=== PATIENT | female | born 1965 | race Caucasian/White ===

== ENCOUNTER 2020-08-25 10:18 | Observation (INO) | payer OTHER, SELFPAY ==
[2020-08-25] VITALS (12 sets, daily range): BP systolic 111–159; BP diastolic 62–89; PULSE 56–74; RESP 12–18; TEMP 36.1–36.8; O2SAT 95–99; BMI 33.5; BMI 33.0
--- NOTE | 2020-08-25 10:24 | RAD_ITS ---
STUDY: X-RAY CHEST REASON FOR EXAM: Female, 55 years old. Left arm n/t, blurred vision, and headache -- sudden onset this morning TECHNIQUE: Single AP portable view of the chest. COMPARISON: None. FINDINGS: The lungs are clear and expanded. There is no demonstrated pleural abnormality. Normal size heart. Normal mediastinum and geetha. Normal visualized pulmonary arteries. Normal visualized aortic arch and descending thoracic aorta. There are diffuse degenerative changes of the visualized thoracic spine. There is a suggestion of prior left lower rib fracture allowing for summation of shadows. There is no demonstrated abnormality of the visualized soft tissue structures of the upper abdomen. RAD/Chest 1 View IMPRESSION: No demonstrated acute cardiopulmonary process. Electronically Signed: Nusrat Musa MD at 12:04 EST Tel , Service support ,
--- NOTE | 2020-08-25 10:24 | CT_ITS ---
STUDY: CT HEAD STROKE PROTOCOL W/O CONTRAST INJECTION REASON FOR EXAM: Female, 55 years old. CVA RADIATION DOSAGE (If Supplied By Facility): CTDIvol = ( ) mGy, DLP = ( ) mGycm TECHNIQUE: Transaxial CT imaging of the brain was performed without administration of intravenous contrast material. Individualized dose optimization techniques were used for this CT. COMPARISON: No relevant priors. FINDINGS: Normal soft tissue structures. Normal calvarium. Normal size ventricles and extra-axial spaces for the patient''s age. Normal white matter tracts of the cerebral hemispheres. Normal basal ganglia and thalami. Normal brainstem. There is mild cerebellar atrophy. There is a small 2.7 mm focus of low-attenuation within the low left basal ganglia which may represent a small prior lacunar infarct versus a small CSF space Virchow-Clarence space. There is no intracranial hemorrhage. There are no findings of an acute ischemic infarction. Normal visualized paranasal sinuses. ASPECT score: 04/20 CT/STROKE Brain/Head without Cont IMPRESSION: Minimal atrophy no evidence of acute hemorrhage infarct or edema. Possible prior left-sided basal ganglia infarct versus small Virchow-Clarence space. N.B. : The above information has been verbally conveyed by Nusrat Musa MD to Emmanuel Glass MD, on 08/25/2020 10:44:24 (ET). Electronically Signed: Nusrat Musa MD at 10:45 EST Tel , Service support ,
--- NOTE | 2020-08-25 10:24 | EKG12_ITS ---
Test Reason : STROKE Blood Pressure : / mmHG Vent. Rate : 066 BPM Atrial Rate : 066 BPM P-R Int : 182 ms QRS Dur : 090 ms QT Int : 414 ms P-R-T Axes : -06 -04 003 degrees QTc Int : 434 ms Normal sinus rhythm Low Voltage QRS Confirmed by CORRINE YOO, COLT ([id number]), film editor supervisor TANJA EGAN ([id number]) on 08/29/2020 1:28:00 PM Referred By: Confirmed By:COLT CASTLE MD
--- NOTE | 2020-08-25 10:26 | ED.DCSUM_ITS ---
History of Present Illness Chief Complaint: Neuro S/Sx Informant: Patient Onset: Today, Hours - 0920 Context: Sudden Onset Timing: Continuous Quality and Location: Left Face Parasthesia, Left Arm Parasthesia, Left Leg Para sthesia, - - Patient reports she had a TIA 1 week ago seen at [facility] and symptoms were on the right side. Onset: 09 Current Severity: Mild Maximum Severity: Mild Worsened by: Nothing Relieved by: Nothing Associated Symptoms: Headache. Negative for: Nausea, Vomiting, Chest Pain Narrative: Patient is a 55-year-old woman who quit smoking 1 week ago and history of hypercholesterolemia who was diagnosed with a TIA 1 week ago. She presents because of binocular blurred vision, numbness on the left side. She has persistent numbness left upper extremity. The numbness in the left lower extremity has resolved. She states her smile was crooked when she was seen at [facility] and affected the right side. She does report headache. She denies double vision or loss of vision. She denies trouble with speech or swallowing. She denies cardiac respiratory symptoms. She denies nausea or vomiting. There is no history of trauma. Onset of today's symptom 0920. Reports improvement since onset. Prior similar symptoms: Yes Recent Illness/Hospitalization: Yes - Past Medical History (1) History of hypercholesterolemia Status: Acute Past Medical History - Allergies and Home Meds Allergies/Adverse Reactions: Allergies No Known Allergies Allergy (Verified 08/25/20 10:24) Primary Care Physician: Braxton Toussaint MD [Primary Care Provider] - Prior records reviewed: No - Obtaining records from outside facility Lives: Spouse/ Significant Other Smoking Status: Former smoker Alcohol: None Drugs: None Review of Systems General: Denies: Chills, Fever, Malaise Eyes: Reports: Blurred Vision - bilaterally. Denies: Visual changes - bilaterally, Diplopia ENT: Denies: Rhinorrhea, Sore throat Cardiovascular: Denies: Chest pain, Palpitations Respiratory: Denies: Dyspnea, Cough, Dyspnea on exertion Gastrointestinal: Denies: Abdominal pain, Nausea, Vomiting, Diarrhea, Melena, Hematochezia Genitourinary: Denies: Dysuria, Hematuria, Frequency Musculoskeletal: Denies: Myalgias, Arthralgias, Neck pain, Back pain, Swelling, Extremity Pain, -, - Skin: Denies: Rash, Wounds Neurological: Reports: Headache, Parasthesia, Numbness Psych: Reports: Anxiety Hematologic: Denies: Easy bruising, Easy bleeding Allergy: Denies: Uticaria STROKE Inital Vital Signs reviewed: Yes - NIHSS Initial 1a Level of Consciousness: 0 1b LOC Questions (Score 2 if aphasic/stupor): 0 1c LOC Commands (Only score 1st attempt): 0 2 Best Gaze (If aphasic, use reflexive mvmts.): 0 3 Visual: 0 4 Facial Palsy: 1 5 Motor Arm Right (UN = amputation/fusion): 0 5 Motor Arm Left: 0 6 Motor Leg Right: 0 6 Motor Leg Left: 0 7 Limb ataxia (Only + if out of proportion): 0 8 Sensory (Aphasia/stupor=0 or 1, coma=2): 1 9 Best Language: 0 10 Dysarthria (mute, coma=2, intubated=UN): 0 11 Extinction and Inattention (only scored if +): 0 Total Score: 2 General: Well nourished, Well developed Head: Normocephalic, Atraumatic Eyes: Perrl, EOMI ENT: Moist mucous membranes, No rhinorrhea Neck: Supple, Nontender Cardiovascular: Regular rate, Regular rhythm, No murmurs, Normal S1, Normal S2 Respiratory: No distress, CTA bilaterally, Chest nontender Abdomen: Soft, Nontender, Nondistended, Normal bowel sounds Rectal: Deferred Back: Nontender, Normal Inspection Extremities: Nontender, No edema Skin: Normal color, No rash Neurological: Alert, Oriented x3, Normal Strength, Normal Sensation. Negative for: Cranial nerves II-XII grossly intact - She has asymmetry right side of her face. Psychological: Normal affect, - - Patient is anxious. Diagnostic/Tx/Re-eval - EKG Initial EKG Interpretation: Sinus Rhythm - Normal sinus rhythm with ventricular to 66. [place] interval is 182 ms. QRS duration 90 ms. [place] is normal. QT duration is normal. The EKG is normal. EKG was performed at 1037. - Medical Decision Making Stroke Team Activated: Yes Reviewed Inclusion/Exclusion criteria: Yes Was Patient considered for Endovascular Intervention?: No IV Alteplase (t-PA) Administered: No No contraindications for IV Alteplase (t-PA) administration.: No - Of contraindication of stroke last week and abnormality noted on CT Alteplase (t-PA) risks, benefits, alternative discussed: Yes Patient 55-year-old woman who was seen at outside facility and diagnosed with stroke 1 week ago. She states she quit smoking. She presents with left-sided symptoms. 1 week ago she had right-sided symptoms. Patient has relative contraindication since she had a stroke 1 week ago with regards to TPA. Since her score is a 2 and 1 point was assessed because of residual asymmetry with smiling patient has minor symptoms at this time. CTA was not performed. With patient complaint of headache concerned she may have hemorrhagic conversion. Since there is involvement on the opposite side need to rule out embolic phenomenon. Will obtain MRI, CT, echo and discharge summary from outside facility. I received call from radiologist at [address] reveals a 1 to 2 mm area of abnormality left basal ganglion which may represent her stroke from last week. The neurologist from [facility] is presently performing his neurologic exam. With patient having right-sided symptoms last week and left-sided symptoms this week need to evaluate for embolic phenomenon and rule out PFO if bubble test was not performed. The neurologist at [facility] requested a CTA of the head and neck. This was ordered. Records from outside facility were obtained. Patient had a CT, CTA and MRI. No discrete abnormalities noted however reading the text of the discharge summary indicates there was an abnormality noted left torso putamen. Patient had an A1c of 6.2. She was discharged on Plavix. There is no documentation of an e chocardiogram however under discharge diagnosis #1 acute clinical CVA, patient will be discharged with dual antiplatelet therapy for 3 weeks followed by aspirin monotherapy, high-dose atorvastatin at 80 mg daily and CardioNet monitor on discharge assuming echocardiogram shows no thrombus. Hospital course indicated that her symptoms were on the left side and not right side as patient stated. Critical care time (excluding procedures): 30-74 minutes - This included history, physical exam, discussion with radiologist, discussion with neurologist at [facility], documentation, arranging admission/transfer. Attaining records from outside facility. Reviewing records from outside facility. ED Disposition - Plan for ED Patient: Disposition: Acute Care Hospital [facility] Diagnosis: CVA (cerebral vascular accident), History of hypercholesterolemia Referrals: Braxton Toussaint MD [Primary Care Provider] -
[2020-08-25 10:30] LABS: Bedside Glucose 126 mg/dL (70-110)
[2020-08-25 10:48] LABS: Absolute Lymphocyte Count 1.58 X10^3/uL (0.83-4.51); Absolute Neutrophil Count 2.7 X10^3/uL (2.0-7.7); Basophil# 0.02 X10^3/uL; Basophil% 0.4 % (0-1); Eosinophil# 0.06 X10^3/uL; Eosinophils% 1.2 % (0-5); Hematocrit 46.1 % (37-47); Hemoglobin 15.1 g/dL (12.0-15.0); Lymphocyte # 1.58 X10^3/ul (4.0); Lymphocyte % 32.3 % (19-41); Mean Corp Hgb Conc 32.8 g/dL (32-36); Mean Corpuscular Hgb 30.2 pg (27.0-32.0); Mean Corpuscular Volume 92.2 fL (81-99); Mean Platelet Vol. 11.7 fl (6.2-12.0); Monocyte# 0.52 X10^3/uL; Monocyte% 10.6 % (0-10); NRBC Flagged by Analyzer 0 % (0-5); Neutrophil % 55.3 % (47-70); Platelet Count 226 K/mm3 (150-450); RBC Distribution Width CV 12.7 % (11.6-14.6); RBC Distribution Width SD 42.7 fl (35.1-43.9); White Blood Count 4.9 K/mm3 (4.4-11.0)
--- NOTE | 2020-08-25 11:00 | CT_ITS ---
We are attempting to reach an attending provider to discuss findings. An addendum with communication details will be sent when the communication is complete. STUDY: CTA HEAD AND NECK WITH CONTRAST REASON FOR EXAM: Female, 55 years old. CVA, LT SIDED N/T, HLD, TIA 1 WK AGO, [place] RADIATION DOSAGE (If Supplied By Facility): CTDIvol = ( 17.85 ) mGy, DLP = ( 657.88 ) mGycm TECHNIQUE: CT angiography was performed with a multi-detector CT scanner. Data acquisition was obtained from the skull base through the vertex following intravenous administration of IV 100mL Isovue-370. MIP images were reconstructed from the axial data set. Post-processing of the angiographic images was performed, with multiplanar reformation and 3D reconstruction. Individualized dose optimization techniques were used for this CT. COMPARISON: No relevant priors. FINDINGS: Normal bilateral petrous carotid arteries. Normal right cavernous carotid artery with a normal supraclinoid bifurcation. Normal left cavernous carotid artery with a normal supraclinoid bifurcation. Normal right A1 segments of the anterior cerebral artery. Normal left A1 segments of the anterior cerebral artery. Normal intact anterior communicating artery (ACOM). Normal bilateral A2 segments of the anterior cerebral arteries. Normal right M1 and M2 segments of the middle cerebral arteries, with a normal M1 bifurcation. Normal left M1 and M2 segments of the middle cerebral arteries, with a normal M1 bifurcation. Small caliber posterior communicating artery (PCOM). Small caliber left posterior communicating artery (PCOM). Normal bilateral vertebral arteries. Normal basilar artery with a normal basilar bifurcation. The visualized bilateral superior cerebellar (SCA) arteries are normal. There is a slightly beaded appearance of the right proximal posterior cerebral artery suggesting probable 3.2 mm small segment of fibromuscular dysplasia. The vessel is otherwise patent without visualized thrombus. The left side posterior cerebral artery appears normal without visualized stenosis. There is no demonstrated aneurysm of the [place]. There is no demonstrated abnormality of the visualized brain. AORTIC ARCH: Normal visualized aortic arch. Normal origins of the brachiocephalic, left common carotid, and left subclavian arteries. RIGHT CAROTID ARTERIES: There is atherosclerotic tortuous elongation of the right common carotid artery. There is mild atherosclerotic plaque formation with minimal narrowing of the right carotid bulb. Normal origin of the right internal carotid (ICA) artery without a hemodynamically significant stenosis. Normal visualized cervical portion of the right internal carotid artery. Normal origin of the right external carotid artery (ECA). LEFT CAROTID ARTERIES: Normal left common carotid artery (CCA). Normal left common carotid bulb. Normal origin of the left internal carotid (ICA) artery without a hemodynamically significant stenosis. There is atherosclerotic tortuous elongation of the cervical portion of the left internal carotid artery. Normal origin of the left external carotid artery (ECA). VERTEBRAL ARTERIES: Normal bilateral vertebral arteries. There is incidental visualization of bilateral low attenuating nodules within the thyroid, 5.3 mm on the right and 4.7 mm on the left. There is visualized emphysematous change in the lung apices. There is multilevel degenerative change within the visualized cervical spine. The bone windows are limited at C5-C6 there is a disc osteophyte with mild to moderate neural foramina narrowing mild central stenosis. There is mild facet arthropathy. At C6-C7 there is disc space narrowing and endplate sclerosis mild neural foramina narrowing. There is visualized left-sided maxillary mucosal retention cyst ethmoid sinus mucosal thickening. CT/CTA Head AND Neck W/ Contrast IMPRESSION: Minimal plaque formation of the right internal carotid artery without evidence of stenosis. Probable small focus of fibromuscular dysplasia within the proximal right posterior cerebral artery without evidence of significant stenosis. Recommend consideration for follow-up MRI/MRA if clinically appropriate to evaluate for areas of acuity. Degenerative changes of the cervical spine especially C5-C6 C6-C7. Incidental finding of bilateral thyroid nodules. Recommend consideration for follow-up thyroid ultrasound laboratory values when clinically appropriate. Electronically Signed: Nusrat Musa MD at 11:52 EST Tel , Service support ,
[2020-08-25 11:05] LABS: International Normalized Ratio 0.9; Prothrombin Time (Protime)PT. 11.9 SECONDS (11.7-14.9)
[2020-08-25 11:06] LABS: Anion Gap 8 (5-15); BUN 17 mg/dL (7-18); BUN/Creat Ratio 21.9 RATIO (10-20); Calcium,Total 8.8 mg/dL (8.5-10.1); Chloride 104 mmol/L (98-107); Creatinine, Serum 0.78 mg/dL (0.55-1.02); EST Glomerular Filtration Rate 81 mL/min (>60); Est Glom Filt Rate - Afr Amer 98 mL/min (>60); Estimated Creatinine Clearance 68.72 ml/min; Glucose 105 mg/dL (74-106); Sodium Level 139 mmol/L (136-145)
[2020-08-25 11:07] LABS: Partial Thromboplast Time 27.5 Seconds (24.1-36.2)
--- NOTE | 2020-08-25 13:20 | PCM.HP.STD ---
Problem List (1) History of hypercholesterolemia Status: Acute (2) CVA (cerebral vascular accident) Status: Acute History of Present Illness Date of Admission: 08/25/20 Chief Complaint: Left-sided numbness, tingling, blurred vision. The patient is a 55 year old F who presents emergency room due to left-sided numbness, tingling and blurred vision. Patient states she was diagnosed with TIA 1 week ago at [facility] and had similar symptoms. Patient states her symptoms resolved at that time however recurred this morning. She denies unilateral weakness. She reports mild sensory deficit on the left side however visual disturbances have subsided. She states she quit smoking 1 week ago after her TIA diagnosis. She denies other medical history. She has been taking her dual antiplatelet which was recently prescribed. Denies other associated symptoms or complaints. Her past medical history includes recent TIA, prediabetes, tobacco dependence, hyperlipidemia. Past Medical History Allergies No Known Allergies Allergy (Verified 08/25/20 10:24) Home Medications: Ambulatory Orders Medication Instructions Recorded Aspirin [Aspirin, Baby] 81 mg PO DAILY@0800 08/25/20 Atorvastatin Calcium [Lipitor] 80 mg PO QHS 08/25/20 Clopidogrel Bisulfate [Plavix] 75 mg PO DAILY 08/25/20 Hydroxyzine HCl 25 mg PO Q8H PRN PRN 08/25/20 Nicotine [Nicoderm Cq (PBKC)] 14 mg TRANSDERM. DAILY 08/25/20 Pantoprazole Sodium [Protonix] 40 mg PO DAILY 08/25/20 Surgical History: - - Right shoulder surgery, tonsillectomy, hernia repair. 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 Lives: Spouse/ Significant Other Smoking Status: Former smoker Alcohol: None Drugs: None - *Family History Maternal History Items: - - Denies known maternal medical history including cardiac history Paternal History Items: Diabetes, Heart Disease Review of Systems Constitutional: Denies: Chills, Fever, Weight Change HEENT: Denies: Head Aches, Sinus Congestion, Sinus Drainage Cardiovascular: Denies: Chest Pain, Palpitations Respiratory: Denies: Cough, Shortness of breath at rest, Sputum production Gastrointestinal: Denies: Abdominal Pain, Nausea, Vomiting Genitourinary: Denies: Dysuria Musculoskeletal: Denies: Joint Pain, Joint Tenderness Skin: Denies: Rash, Wounds Neurological: Reports: Blurred vision, - - Left upper extremity and left lower extremity numbness, tingling. Psychiatric: Denies: Anxiety, Depression, Homicidal Ideations, Suicidal Ideations Hematologic/ Lymphatic: Denies: Easy Bruising, Easy Bleeding VTE Information - Inpt Only VTE Present on Admission: No VTE Mechan Device Prophylaxis: None VTE Pharm Prophylaxis ordered?: Yes Patient Problems: Active and Suspected Problems History of hypercholesterolemia (Acute) CVA (cerebral vascular accident) (Acute) - Physical Exam Vitals/I&O's: Vital Signs Temp Pulse Resp BP Pulse Ox 97.0 F L 59 L 18 118/79 95 08/25/20 12:10 08/25/20 12:10 08/25/20 12:10 08/25/20 12:10 08/25/20 12:54 Oxygen Delivery Method Room Air Weight: 195 lb 12.328 oz Body Mass Index (BMI) 33.5 Finger Stick Blood Glucose 126 General: Alert, Oriented x3, Cooperative HEENT: Atraumatic, PERRLA, EOMI, Normocephalic Neck: Supple, No JVD, Negative Carotid Bruits Lungs: Clear to auscultation, Normal air movement Cardiovascular: Regular rate, No murmurs Abdomen: Bowel Sounds Present, Soft, Non Tender, Non-Distended Extremities: No clubbing, No cyanosis, No edema, Capillary Refill Less than 3 Seconds Skin: No rashes, No breakdown Musculoskeletal: No Tenderness to Palpation of Joints or Extremities Neurological: Cranial nerves II-XII grossly intact, Neuro grossly intact Psych/Mental Status: Normal Affect, Appropriate Laboratory Results 08/25/20 10:20: WBC 4.9, RBC 5.00, Hgb 15.1 H, Hct 46.1, MCV 92.2, MCH 30.2, MCHC 32.8, RDW Std Deviation 42.7, RDW Coeff of Zarina 12.7, Plt Count 226, MPV 11.7, Immature Gran % (Auto) 0.200, Neut % (Auto) 55.3, Lymph % (Auto) 32.3, [place] % (Auto) 10.6 H, Eos % (Auto) 1.2, Baso % (Auto) 0.4, Absolute Neuts (auto) 2.7, Absolute Lymphs (auto) 1.58, Nucleated RBC % 0 08/25/20 10:20: PT 11.9, INR 0.9, APTT 27.5 08/25/20 10:20: Sodium 139, Potassium 4.0, Chloride 104, Carbon Dioxide 27.0, Anion Gap 8, BUN 17, Creatinine 0.78, Estim Creat Clear Calc 68.72, Est GFR (MDRD) Af Amer 98, Est GFR (MDRD) Non-Af 81, BUN/Creatinine Ratio 21.9 H, Glucose 105, Calcium 8.8, Troponin I < 0.015 08/25/20 10:26: POC Glucose 126 H Current Medications Labetalol HCl (Labetalol (Prefilled) 20 Mg/4 Ml) 20 mg IV X1 PRN PRN Reason: BLOOD PRESSURE Assessment/Plan All Active Problems History of hypercholesterolemia (Acute) CVA (cerebral vascular accident) (Acute) 1. TIA- Patient was recently admitted to [facility] 08/16/2020 through 08/19/2020 for acute clinical CVA. CTA of head at that time showed focal hypoattenuation of the left dorsal putamen. CT of head and neck were unremarkable. MRI of brain showed no definitive stroke. Neurology consulted at [facility] who felt patient clinically had a stroke although MRI was negative and recommended dual antiplatelet therapy for 3 weeks followed by aspirin only as well as high-dose statin. She is scheduled for outpatient 30-day event monitor which has not yet arrived to her. Brain CT this admission shows possible prior left-sided basal ganglia infarct. CTA of head and neck demonstrates probable small focus of fibromuscular dysplasia within the proximal right posterior cerebral artery without evidence of significant stenosis. MRI of brain ordered. Will not repeat echo as she recently had this completed. Echocardiogram 08/19/2020 at [facility] demonstrated an EF of 50 to 55%, negative for shunt. Continue aspirin, Plavix, statin. PT/OT/ST. 2. Prediabetes-recent hemoglobin A1c at [facility] 6.2%. 3. Tobacco dependence-recent cessation. Encouraged continued cessation. Nicotine replacement patch. 4. Hyperlipidemia-continue statin. DVT prophylaxis-Lovenox subcu This patient was seen by MARCELA Givens under the supervision of Dr. Payton.
--- NOTE | 2020-08-25 13:47 | PCS.PANDOC ---
PANDEMIC DOCUMENTATION INITIATED: Date: 08/25/2020 Time: 7710
[2020-08-25] MEDS: Acetaminophen 325 MG Tablet 650 MG PO (20:50)
[2020-08-25] MEDS: Atorvastatin Calcium 80 MG Tablet PO (20:50)
[2020-08-26 00:42] VITALS: BP 115/75; PULSE 62; RESP 16; TEMP 36.7; O2SAT 98
[2020-08-26 02:53] VITALS: PULSE 57
[2020-08-26 04:40] VITALS: BP 118/65; PULSE 60; RESP 16; TEMP 36.5; O2SAT 98
[2020-08-26 07:00] VITALS: PULSE 60
--- NOTE | 2020-08-26 08:30 | MRI_ITS ---
STUDY: MRI BRAIN WITHOUT CONTRAST REASON FOR EXAM: Female, 55 years old. left parasthesia, blurred vision,leung -- tia 1 week ago, now same symptoms TECHNIQUE: Standardized multiplanar fat and water weighted pulse sequences were obtained. COMPARISON: 08/25/2020 CT of the head FINDINGS: Normal size of the ventricles and extra-axial spaces for the patient''s age. Normal white matter tracts of the supratentorial brain. Left basal ganglia small Virchow-Clarence space. Normal thalami. There is no extra-axial fluid accumulation. Normal flow voids within the major intracranial circulation suggesting patency by spin echo criteria. Normal sella turcica, pituitary gland, infundibular stalk, optic chiasm and hypothalamus. Normal tectal plate and pineal gland. Normal midbrain, xiomara and medulla. Normal cerebellum. MRI/Brain without Contrast IMPRESSION: Unremarkable unenhanced MRI of the brain. Electronically Signed: Carlos Lei MD at 10:36 EST Tel , Service support ,
[2020-08-26 08:38] VITALS: BP 133/83; PULSE 71; RESP 16; TEMP 36.6; O2SAT 98
[2020-08-26] MEDS: Clopidogrel Bisulfate 75 MG Tablet PO (08:39)
[2020-08-26] MEDS: Aspirin 81 MG TAB.CHEW PO (08:39)
--- NOTE | 2020-08-26 11:30 | CASEMGMT ---
SW did not complete a PHQ 9 with patient as per physician she did not have a Stroke or TIA. Sudha SCRUGGS MSW
--- NOTE | 2020-08-26 11:46 | DCINST_ITS ---
- Discharge Diagnoses Current Active Problems: Current Active and Chronic Problems History of hypercholesterolemia (Acute) You will use the following diet at home:: Calorie/Carbohydrate Controlled (specify 1200, 1400, etc) Discharge Activity: Return to Normal Activity Call your doctor if you observe: Shortness of breath, Dizziness, Fainting spells, Chest pain Additional Instructions: Discontinue Plavix after 3 weeks and continue aspirin only along with statin. Continue 30-day event monitor as scheduled as outpatient. Allergies/Adverse Reactions: Allergies No Known Allergies Allergy (Verified 08/25/20 10:24) Medications to take at Discharge Aspirin [Aspirin, Baby] 81 mg PO DAILY@0800 08/25/20 Atorvastatin Calcium [Lipitor] 80 mg PO QHS 08/25/20 Clopidogrel Bisulfate [Plavix] 75 mg PO DAILY 08/25/20 Nicotine [Nicoderm] 14 mg TRANSDERM. DAILY 08/25/20 busPIRone [Buspar] 15 mg PO BID #42 tab 08/26/20 The following prescriptions were given: busPIRone [Buspar] 15 mg PO BID #42 tab Transmission Status: Pending to [address] Primary Care Physician: Braxton Toussaint MD [Primary Care Provider] - Please follow up with your Primary Care Physician in: 1 Week Test Results: Test results from this visit will be discussed in further detail at your follow- up appointment, if applicable. Please Follow Up With: Primary Neurologist When: As scheduled Proposed Discharge Date: 08/26/20
--- NOTE | 2020-08-26 12:06 | PHA.DC.MR ---
Pharmacy Service has performed discharge medication reconciliation for this patient. The patient's discharge medication list was reviewed for discrepancies and discrepancies were resolved. Home Medications Aspirin [Aspirin, Baby] 81 mg PO DAILY@0800 08/25/20 Atorvastatin Calcium [Lipitor] 80 mg PO QHS 08/25/20 Clopidogrel Bisulfate [Plavix] 75 mg PO DAILY 08/25/20 Nicotine [Nicoderm Cq (PBKC)] 14 mg TRANSDERM. DAILY 08/25/20 Pantoprazole Sodium [Protonix] 40 mg PO DAILY 08/25/20
--- NOTE | 2020-08-26 12:23 | DS.PCM_ITS ---
Discharge Date and Diagnosis - Problem List Patient Problems: Active and Suspected Problems History of hypercholesterolemia (Acute) Date of Admission: 08/25/20 Date of Discharge: 08/26/20 - Primary Discharge Diagnosis Acute Problems: Active Problems 1. Left-sided recurrent paresthesias, unclear etiology. 2. Prediabetes 3. Tobacco dependence 4. Hyperlipidemia 5. Anxiety Hospital Course and Treatment Imaging Results: Diagnostic Data Brain CT 08/25/20 10:24 IMPRESSION: Minimal atrophy no evidence of acute hemorrhage infarct or edema. Possible prior left-sided basal ganglia infarct versus small Virchow-Clarence space. N.B. : The above information has been verbally conveyed by Nusrat Musa MD to Emmanuel Glass MD, on 08/25/2020 10:44:24 (ET). Electronically Signed: Nusrat Musa MD at 10:45 EST Tel , Service support , ADDENDUM: 08/25/20 1052 IMPRESSION: Minimal atrophy no evidence of acute hemorrhage infarct or edema. Possible prior left-sided basal ganglia infarct versus small Virchow-Clarence space. N.B. : The above information has been verbally conveyed by Nusrat Musa MD to Emmanuel Glass MD, on 08/25/2020 10:44:24 (ET). Electronically Signed: Nusrat Musa MD at 10:45 EST Tel , Service support , Chest X-Ray 08/25/20 10:24 IMPRESSION: No demonstrated acute cardiopulmonary process. Electronically Signed: Nusrat Musa MD at 12:04 EST Tel , Service support , Head/Neck CTA 08/25/20 11:00 IMPRESSION: Minimal plaque formation of the right internal carotid artery without evidence of stenosis. Probable small focus of fibromuscular dysplasia within the proximal right posterior cerebral artery without evidence of significant stenosis. Recommend consideration for follow-up MRI/MRA if clinically appropriate to evaluate for areas of acuity. Degenerative changes of the cervical spine especially C5-C6 C6-C7. Incidental finding of bilateral thyroid nodules. Recommend consideration for follow-up thyroid ultrasound laboratory values when clinically appropriate. Electronically Signed: Nusrat Musa MD at 11:52 EST Tel , Service support , ADDENDUM: 08/25/20 1202 IMPRESSION: Minimal plaque formation of the right internal carotid artery without evidence of stenosis. Probable small focus of fibromuscular dysplasia within the proximal right posterior cerebral artery without evidence of significant stenosis. Recommend consideration for follow-up MRI/MRA if clinically appropriate to evaluate for areas of acuity. Degenerative changes of the cervical spine especially C5-C6 C6-C7. Incidental finding of bilateral thyroid nodules. Recommend consideration for follow-up thyroid ultrasound laboratory values when clinically appropriate. N.B. : The above information has been verbally conveyed by Nusrat Musa MD to Manjula Ramirez RN, on 08/25/2020 11:55:06 (ET). Electronically Signed: Nusrat Musa MD at 11:52 EST Tel , Service support , ADDENDUM: 08/25/20 1205 IMPRESSION: Minimal plaque formation of the right internal carotid artery without evidence of stenosis. Probable small focus of fibromuscular dysplasia within the proximal right posterior cerebral artery without evidence of significant stenosis. Recommend consideration for follow-up MRI/MRA if clinically appropriate to evaluate for areas of acuity. Degenerative changes of the cervical spine especially C5-C6 C6-C7. Incidental finding of bilateral thyroid nodules. Recommend consideration for follow-up thyroid ultrasound laboratory values when clinically appropriate. N.B. : The above information has been verbally conveyed by Nusrat Musa MD to THUY Fair, on 08/25/2020 11:58:47 (ET). Electronically Signed: Nusrat Musa MD at 11:52 EST Tel , Service support , Brain MRI 08/26/20 08:30 IMPRESSION: Unremarkable unenhanced MRI of the brain. Electronically Signed: Carlos Lei MD at 10:36 EST Tel , Service support , Operations: None Procedures: None Summary of Care Provided: The patient is a 55 year old F admitted 08/25/2020 due to left-sided numbness, tingling and blurred vision. 1. Recurrent left-sided paresthesias-TIA/CVA ruled out. Patient was recently admitted to [facility] 08/16/2020 through 08/19/2020 for acute clinical CVA. CTA of head at that time showed focal hypoattenuation of the left dorsal putamen. CT of head and neck were unremarkable. MRI of brain showed no definitive stroke. Neurology consulted at [facility] who felt patient clinically had a stroke although MRI was negative and recommended dual antiplatelet therapy for 3 weeks followed by aspirin only as well as high-dose statin. She is scheduled for outpatient 30-day event monitor which has not yet arrived to her. Brain CT this admission shows possible prior left-sided basal ganglia infarct. CTA of head and neck demonstrates probable small focus of fibromuscular dysplasia within the proximal right posterior cerebral artery without evidence of significant stenosis. MRI of brain ordered. Will not repeat echo as she recently had this completed. Echocardiogram 08/19/2020 at [facility] demonstrated an EF of 50 to 55%, negative for shunt. Continue aspirin, Plavix, statin. Discontinue Plavix after 3 weeks. Continue Holter mo nitor as ordered. Continue follow-up with neurology as outpatient as scheduled. 2. Prediabetes-recent hemoglobin A1c at [facility] 6.2%. Advised carb controlled diet, further follow-up with PCP. 3. Tobacco dependence-recent cessation. Encouraged continued cessation. Nicotine replacement patch. 4. Hyperlipidemia-continue statin. 5. Anxiety-patient has significant current situational stress related to a custody [place]. Rx for BuSpar at discharge. Further follow-up with PCP. General: Alert, Oriented x3, Cooperative HEENT: Atraumatic, PERRLA, EOMI, Normocephalic Neck: Supple, No JVD, Negative Carotid Bruits Lungs: Clear to auscultation, Normal air movement Cardiovascular: Regular rate, No murmurs Abdomen: Bowel Sounds Present, Soft, Non Tender, Non-Distended Extremities: No clubbing, No cyanosis, No edema, Capillary Refill Less than 3 Seconds Skin: No rashes, No breakdown Musculoskeletal: No Tenderness to Palpation of Joints or Extremities Neurological: Cranial nerves II-XII grossly intact, Neuro grossly intact Psych/Mental Status: Normal Affect, Appropriate Patient seen and examined prior to discharge. Physical assessment as noted above. Patient is stable for discharge with follow up recommendations as noted above. This patient was seen by MARCELA Givens under the supervision of Dr. Payton. Patient Problems: Active and Suspected Problems History of hypercholesterolemia (Acute) - Physical Exam Vitals/I&O's: Vital Signs Temp Pulse Resp BP Pulse Ox 97.9 F 71 16 133/83 H 98 08/26/20 08:38 08/26/20 08:38 08/26/20 08:38 08/26/20 08:38 08/26/20 08:38 Oxygen Delivery Method Room Air Weight: 192 lb 8 oz Body Mass Index (BMI) 33.0 Finger Stick Blood Glucose 126 Intake and Output for Last 24 Hours 08/24/20 08/25/20 08/26/20 23:59 23:59 23:59 Intake Total 390 / 390 750 / 750 Balance 390 / 390 750 / 750 Current Medications Acetaminophen (Acetaminophen 325 Mg Tablet) 650 mg PO Q4H PRN PRN PRN Reason: Headache/Temp>99.6F Last Admin: 08/25/20 20:50 Dose: 650 mg Documented by: Acetaminophen (Acetaminophen 650 Mg Suppository) 650 mg RC Q4H PRN PRN PRN Reason: Headache/Temp>99F Acetaminophen (Acetaminophen 650 Mg/20 Ml Udc) 650 mg NG Q4H PRN PRN PRN Reason: Headache/Temp>99F Alprazolam (Alprazolam 0.5 Mg Tablet) 0.5 mg PO QHS PRN PRN PRN Reason: INSOMNIA Aspirin (Aspirin 81 Mg Tab.Chew) 81 mg PO DAILY@0800 [facility] Last Admin: 08/26/20 08:39 Dose: 81 mg Documented by: Atorvastatin Calcium (Atorvastatin Calcium 80 Mg Tablet) 80 mg PO QHS [facility] Last Admin: 08/25/20 20:50 Dose: 80 mg Documented by: Clopidogrel Bisulfate (Clopidogrel Bisulfate 75 Mg Tablet) 75 mg PO DAILY [facility] Last Admin: 08/26/20 08:39 Dose: 75 mg Documented by: Hydralazine HCl (Hydralazine 20 Mg/Ml Vial) 5 mg IV Q30M PRN PRN Reason: to maintain BP goals Hydroxyzine Pamoate (Hydroxyzine Nancy 25 Mg Capsule) 25 mg PO Q8H PRN PRN PRN Reason: ANXIETY Labetalol HCl (Labetalol (Prefilled) 20 Mg/4 Ml) 10 - 20 mg IV Q10M PRN PRN PRN Reason: to Maintain BP Goals Melatonin (Melatonin 3 Mg Tablet) 3 mg PO QHS PRN PRN PRN Reason: SLEEP Nicotine (Nicotine 14 Mg Patch) 14 mg TD DAILY [facility] Last Admin: 08/26/20 08:39 Dose: 14 mg Documented by: Pantoprazole Sodium (Pantoprazole Sodium 40 Mg Tablet) 40 mg PO DAILY [facility] Last Admin: 08/26/20 08:40 Dose: Not Given Documented by: Sodium Chloride (0.9% Saline Lock 10 Ml Syringe) 10 - 40 ml IV UD PRN PRN Reason: SALINE FLUSH Discharge Diet: Low fat/ Low Cholesterol Discharge Activity: Return to Normal Activity Call your doctor if you observe: Shortness of breath, Dizziness, Fainting spells, Chest pain Home Medications: Medications to take at Discharge Aspirin [Aspirin, Baby] 81 mg PO DAILY@0800 08/25/20 Atorvastatin Calcium [Lipitor] 80 mg PO QHS 08/25/20 Clopidogrel Bisulfate [Plavix] 75 mg PO DAILY 08/25/20 Nicotine [Nicoderm] 14 mg TRANSDERM. DAILY 08/25/20 busPIRone [Buspar] 15 mg PO BID #42 tab 08/26/20 Following Prescriptions Were Given to Patient: busPIRone [Buspar] 15 mg PO BID #42 tab Transmission Status: Pending to [address] Primary Care Physician: Braxton Toussaint MD [Primary Care Provider] - Please follow up with your Primary Care Physician in: 1 Week Please Follow Up With: Primary Neurologist When: As scheduled Disposition: Home Minutes spent on discharge:: 35 Patient Condition:: Stable Medical Necessity - Tobacco Use Smoking Status: Former smoker Tobacco Use: Cigarettes Meaningful Use Info Meaningful Use Diagnoses (Choose all that apply): None applicable
[2020-08-26 12:44] VITALS: BP 118/69; PULSE 69; RESP 16; TEMP 36.7; O2SAT 96
== END 2020-08-26 11:46 | disposition home or self-care (01) ==
LOC: ED 12:07 → PCU 12:32
PROVIDERS: Admitting Provider Internal Medicine; Emergency Provider Emergency Medicine; PCP Family Medicine; Visit Provider Internal Medicine
DX: R20.2 Paresthesia of skin (principal); E78.5 Hyperlipidemia, unspecified; R73.03 Prediabetes; Z79.899 Other long term (current) drug therapy; Z79.02 Long term (current) use of antithrombotics/antiplatelets; Z79.82 Long term (current) use of aspirin; Z86.73 Personal history of transient ischemic attack (TIA), and cerebral infarction without residual deficits; Z87.891 Personal history of nicotine dependence; R51.9 Headache, unspecified; H53.8 Other visual disturbances; F41.9 Anxiety disorder, unspecified
CPT/HCPCS: 70450; 70496; 70498; 70551; 71045; 80048; 82962; 84484; 85025; 85610; 85730; 93005; 99218; 99285; Q9967; A4216; G0378

== ENCOUNTER 2021-06-15 11:15 | Emergency (ER) | payer BC, SELFPAY ==
[2021-06-15 11:16] VITALS: BP 129/85; PULSE 64; RESP 16; TEMP 36.6; O2SAT 95; BMI 31.7
--- NOTE | 2021-06-15 12:15 | RAD_ITS ---
STUDY: X-RAY - UNILATERAL RIBS ( LEFT ) WITH CHEST REASON FOR EXAM: Female, 56 years old. Fall, rib pain TECHNIQUE - RIBS: 4 view(s) of the ribs. TECHNIQUE - CHEST: Single PA view of the chest. COMPARISON: Chest x-ray August 25, 2020 FINDINGS - RIBS: Acute fracture left rib 9. FINDINGS - CHEST: The lungs are clear and expanded. There is no demonstrated pleural abnormality. Normal size heart. Normal mediastinum and geetha. Normal visualized pulmonary arteries. Normal visualized aortic arch and descending thoracic aorta. Normal visualized thoracic spine. No acute fracture left rib 9. There is no demonstrated abnormality of the visualized soft tissue structures of the upper abdomen. RAD/Ribs Uni Min 3V w/PA Chest IMPRESSION: RIBS: Fracture left rib 9. CHEST: No pneumothorax. Electronically Signed: Nusrat Musa MD at 13:00 EST Tel , Service support ,
--- NOTE | 2021-06-15 12:18 | EDS_ITS ---
HPI HPI - Fall History of Present Illness Chief Complaint: Fall Informant: patient Narrative Narrative: Patient is a 56-year-old female presenting with left-sided rib pain. Patient states she tripped on a mattress and her grandchildren's room and fell backwards, twisting and landing on the other grandchild's bed frame. She states she broke the bed frame when she fell. It was made of wood. She landed with her left ribs. She is complaining of associated pain. It is worse when she moves or tries to take a deep breath. She did take 2 Aleve prior to arrival. She is on any blood thinners. She did not hit her head. No reported loss of consciousness. She is worried she might of broke a rib which is why she came to the emergency room. No other complaints at this time. [facility] Medical History Hyperlipidemia Home Medications aspirin 81 mg PO DAILY@0800 08/25/20 [History Last Taken 08/25/20] atorvastatin 80 mg PO QHS 08/25/20 [History Last Taken 08/24/20] clopidogrel 75 mg PO DAILY 08/25/20 [History Last Taken 08/25/20] nicotine 14 mg TRANSDERM. DAILY 08/25/20 [History Last Taken 08/24/20] buspirone 15 mg PO BID #42 tab 08/26/20 [Rx Last Taken Unknown] ibuprofen 600 mg PO Q6H PRN PRN #20 tab 06/15/21 [Rx Last Taken Unknown] oxycodone-acetaminophen [Endocet] 1 tab PO Q6H PRN 3 Days #12 tab 06/15/21 [Rx Last Taken Unknown] Allergy/AdvReac Type Severity Reaction Status Date / Time No Known Allergies Allergy Verified 06/15/21 11:16 Social History Smoking Status: Former smoker ROS ROS ED Constitutional Constitutional ED: Denies chills or fever(s) Eyes Eyes: Denies change in vision ENT ENT ED: Denies ear pain or sore throat Cardiovascular Cardiovascular: Reports chest pain Respiratory/Chest Respiratory/Chest: Denies cough or dyspnea Gastrointestinal Gastrointestinal: Denies abdominal pain or vomiting Genitourinary Genitourinary ED: Denies dysuria or hematuria Musculoskeletal Musculoskeletal: Denies arthralgias or myalgias Integumentary Denies rash Neurologic Neurologic: Denies headache(s), paresthesias or weakness Psychiatric Psychiatric: Denies depression EXAM Physical Exam Const Vital Signs: 06/15/21 11:16 06/15/21 12:10 06/15/21 14:01 Temperature 97.9 F Temperature Source Temporal Pulse Rate 64 62 Respiratory Rate 16 15 Respiratory Effort Normal Non-Labored Respiratory Depth Normal Respiratory Pattern Normal Blood Pressure 129/85 H 134/77 H Blood Pressure Mean 99 Pulse Ox 95 98 Oxygen Delivery Method Room Air Room Air Positive well nourished and well developed General Appearance ED: well developed HEENT Reports normocephalic atraumatic; Negative for trauma, hematoma or tenderness Eyes PERRL and EOMs intact bilaterally Neck full ROM and supple General: Negative for tenderness Chest Wall inspection of chest normal Chest Narrative: No chest wall crepitus appreciated. Significant tenderness palpation of the left lower ribs at approximately rib 9/10 most pronounced around the curve of the rib in the anterior aspect Resp normal respiratory effort and clear to auscultation bilaterally Cardio regular rate, regular rhythm and no murmurs GI non-tender and non-distended Auscultation: normoactive bowel sounds Palpation: soft Back/Spine no CVA tenderness Cervical Spine: Negative for cervical spine tenderness Thoracic Spine / Upper Back: Negative for thoracic spinal tenderness Lumbar Spine / Lower Back: Negative for lumbar spinal tenderness Extremity normal to inspection and full ROM Skin Lesions: no lesions Rashes: no rashes MDM MDM MDM Narrative Medical decision making narrative: Patient is evaluated for left-sided rib pain after mechanical fall. She appears nontoxic in no acute distress. She drove herself here so she is given a Lidoderm patch. She took NSAIDs prior to arrival. X-ray shows a left ninth rib fracture. This is consistent with her clinical presentation. She will prescribed a course of Percocet, Motrin 600 and instructed to get [id number] Lidoderm patches. She is given incentive spirometer with instructions. She is counseled to avoid lifting over 15 pounds while her ribs heal. She is advised against chest finding. Counseled on the risk of pneumonia as well as pneumothorax associated with rib fracture. Counseled return precautions. Discharged home in stable condition. Radiography Chest X-Ray - ED: Read by ED Physician, Read by Radiologist and Left Rib Fx Diagnostic Testing: Clinical Impression(s) from Imaging Studies Ribs w/Chest X-Ray 06/15/21 12:15 IMPRESSION: RIBS: Fracture left rib 9. CHEST: No pneumothorax. Electronically Signed: Nusrat Musa MD at 13:00 EST Tel , Service support , Discharge Plan Triage Chief Complaint: Fall Other Complaint: Chest Other ED Provider: Ashwini Reddy Dx/Rx/DC Orders Clinical Impression: Left rib fracture Instructions: Using an Incentive Spirometer, ED Rib Fracture Prescriptions: New oxycodone-acetaminophen [Endocet] 5-325 mg tablet 1 tab PO Q6H PRN (Reason: pain) 3 Days Qty: 12 RF: 0 ibuprofen 600 mg tablet 600 mg PO Q6H PRN PRN (Reason: fever or pain) Qty: 20 RF: 0 No Action atorvastatin 80 MG tablet 80 mg PO QHS RF: 0 nicotine 14 MG patch 14 mg TRANSDERM. DAILY RF: 0 clopidogrel 75 MG tablet 75 mg PO DAILY RF: 0 aspirin 81 MG tablet,chewable 81 mg PO DAILY@0800 RF: 0 buspirone 15 MG tablet 15 mg PO BID Qty: 42 RF: 0 Primary Care Provider: Nery Rose Referrals: Nery Rose PA [Primary Care Provider] - Activity Restrictions/Additional Instructions: Try not to lift anything over 20 pounds. The fracture is small and should heal up without complications. Avoid taking pain medicine while watching children. Do not drive with pain medication. Use incentive spirometer as much as possible. You may buy [id number] Lidoderm patches, 4% strength. Disposition Disposition: Home, Self Care Discharge Date/Time: 06/15/21 14:02
[2021-06-15] MEDS: Lidocaine 5% Patch 1 PATCH TOPICAL (12:36)
[2021-06-15 14:01] VITALS: BP 134/77; PULSE 62; RESP 15; O2SAT 98
== END 2021-06-15 14:02 | disposition home or self-care (01) ==
PROVIDERS: Emergency Provider Emergency Medicine; PCP Physician Assistant
DX: S22.32XA Fracture of one rib, left side, initial encounter for closed fracture (principal); Z87.891 Personal history of nicotine dependence; W19.XXXA Unspecified fall, initial encounter
CPT/HCPCS: 71101; 99282

== ENCOUNTER 2021-06-22 14:33 | Emergency (ER) | payer BC, SELFPAY ==
[2021-06-22 14:34] VITALS: BP 173/99; PULSE 78; RESP 18; TEMP 36.1; O2SAT 97; BMI 32.4
[2021-06-22 14:39] VITALS: O2SAT 99
--- NOTE | 2021-06-22 14:39 | RAD_ITS ---
INDICATION: SOB EXAMINATION/TECHNIQUE: X-RAY - XR Chest 1 View COMPARISON: 06/15/2020 FINDINGS: LIFE-SUPPORT AND LINES: 1. None HEART AND VESSELS: The cardiac silhouette, pulmonary vasculature have normal appearance. No evidence of congestive failure. LUNGS AND PLEURAL SPACES: Shallow inspiration crowding of bronchovascular markings. No focal infiltrate consolidation or effusion. MEDIASTINUM AND HILAR REGIONS: No masses adenopathy noted. No areas of calcification. Visualized upper airway is normal in position. BONY ELEMENTS: No acute bony changes noted. RAD/Chest 1 View (Portable) IMPRESSION: 1. Shallow aspiration crowding of bronchovascular markings, no focal infiltrate or consolidation. No congestive failure Electronically Signed: Chidi Linda MD at 15:50 EST Tel , Service support ,
--- NOTE | 2021-06-22 14:40 | EKG12_ITS ---
Test Reason : Blood Pressure : / mmHG Vent. Rate : 058 BPM Atrial Rate : 058 BPM P-R Int : 154 ms QRS Dur : 088 ms QT Int : 424 ms P-R-T Axes : 003 -04 005 degrees QTc Int : 416 ms Sinus bradycardia Low voltage QRS Confirmed by CORRINE YOO, COLT ([id number]), newspaper managing editor CHRISTINA CABRAL ([id number]) on 06/25/2021 11:11:38 AM Referred By: Confirmed By:COLT CASTLE MD
[2021-06-22 15:37] LABS: Absolute Lymphocyte Count 1.04 X10^3/uL (0.83-4.51); Absolute Neutrophil Count 4.3 X10^3/uL (2.0-7.7); Basophil# 0.01 X10^3/uL; Basophil% 0.2 % (0-1); Hematocrit 41.9 % (37-47); Lymphocyte # 1.04 X10^3/ul (0.83-4.51); Lymphocyte % 18.5 % (19-41); Mean Corp Hgb Conc 33.4 g/dL (32-36); Mean Corpuscular Hgb 30.4 pg (27.0-32.0); Mean Corpuscular Volume 90.9 fL (81-99); Mean Platelet Vol. 10.8 fl (6.2-12.0); Monocyte# 0.31 X10^3/uL; Monocyte% 5.5 % (0-10); NRBC Flagged by Analyzer 0 % (0-5); Neutrophil # 4.25 X10^3/uL (2.7-7.7); Neutrophil % 75.4 % (47-70); Platelet Count 212 K/mm3 (150-450); Red Blood Count 4.61 M/mm3 (4.2-5.4); White Blood Count 5.6 K/mm3 (4.4-11.0)
[2021-06-22 15:57] LABS: ALB/GLOB Ratio 0.9 RATIO (0.9-2.4); AST(SGOT) 21 U/L (15-37); Alanine Aminotransfer ALT/SGPT 34 U/L (13-56); Albumin, Serum 3.3 g/dL (3.2-5.0); Alkaline Phosphatase 77 U/L (45-117); Anion Gap 6 (5-15); BUN 21 mg/dL (7-18); BUN/Creat Ratio 21.3 RATIO (10-20); Chloride 105 mmol/L (98-107); Creatinine, Serum 0.98 mg/dL (0.55-1.02); EST Glomerular Filtration Rate 62 mL/min (>60); Est Glom Filt Rate - Afr Amer 74 mL/min (>60); Estimated Creatinine Clearance 54.03 ml/min; Globulin 3.5 g/dL (2.2-4.2); Glucose 141 mg/dL (74-106); Potassium 3.9 mmol/L (3.5-5.1); Protein, Total 6.8 g/dL (6.4-8.2); Sodium Level 140 mmol/L (136-145); Troponin-I HS < 3 pg/mL (3.0-54.0)
[2021-06-22 16:33] VITALS: BP 154/82; PULSE 62; RESP 15; O2SAT 100
[2021-06-22 16:37] VITALS: RESP 16; O2SAT 100
--- NOTE | 2021-06-22 17:30 | EDS_ITS ---
HPI History of Present Illness Chief Complaint: Edema Informant: patient Onset/Context/Timing Onset: Today Context: Sudden Onset Timing: Continuous Quality: Feet swelling and lower extremity swelling Location: Lower extremity Current Severity: Mild Maximum Severity: Mild Worsened by: Nothing Relieved by: Nothing Associated Symptoms Associated Symptoms: None Narrative Narrative: Patient is a 56-year-old woman with history of fractured rib and hypercholesterolemia who presents because of swelling of her lower extremities that she noted over the past 24 hours. She is unable to say with any degree of certainty whether the swelling was less this morning upon awakening. She has been less active. She denies history of coronary disease. She denies history of congestive heart failure. She denies orthopnea or PND. Patient denies history of renal disease. She denies decreased urine output. She does admit to being less active since she fractured her ribs 1 week ago. Prior similar symptoms: No Recent Illness/Hospitalization: Yes [facility] Medical History Hyperlipidemia Home Medications atorvastatin 80 mg PO QHS 08/25/20 [History Last Taken 08/24/20] nicotine 14 mg TRANSDERM. DAILY 08/25/20 [History Last Taken 08/24/20] ibuprofen 600 mg PO Q6H PRN PRN #20 tab 06/15/21 [Rx Last Taken Unknown] oxycodone-acetaminophen [Endocet] 1 tab PO Q6H PRN 3 Days #12 tab 06/15/21 [Rx Last Taken Unknown] Allergy/AdvReac Type Severity Reaction Status Date / Time No Known Allergies Allergy Verified 06/22/21 14:33 Social History (Updated 06/22/21 @ 17:[address] Emmanuel Glass MD) household members: none Smoking Status: Former smoker substance use type: does not use ROS ROS ED Constitutional Constitutional ED: Denies chills, fever(s), subjective or sweats Eyes Eyes: Denies blurry vision, change in vision or diplopia ENT ENT ED: Denies ear pain, rhinorrhea or sore throat Cardiovascular Cardiovascular: Denies chest pain, orthopnea, palpitations, paroxysmal nocturnal dyspnea or racing heartbeat Respiratory/Chest Respiratory/Chest: Denies cough, dyspnea, dyspnea on exertion, orthopnea, paroxysmal nocturnal dyspnea or sputum Gastrointestinal Gastrointestinal: Denies abdominal pain, nausea or vomiting Genitourinary Genitourinary ED: Denies dysuria, hematuria or urinary frequency Musculoskeletal Musculoskeletal: Denies arthralgias or myalgias Integumentary Denies rash Neurologic Neurologic: Denies headache(s), paresthesias or weakness EXAM Physical Exam Const Vital Signs: 06/22/21 14:34 06/22/21 16:32 06/22/21 16:33 Temperature 96.9 F L Temperature Source Temporal Pulse Rate 78 62 Respiratory Rate 18 15 Respiratory Effort Normal Non-Labored Respiratory Pattern Normal Blood Pressure 173/99 H 154/82 H Blood Pressure Mean 123 106 Pulse Ox 97 100 Oxygen Delivery Method Room Air Room Air 06/22/21 16:37 Temperature Temperature Source Pulse Rate Respiratory Rate 16 Respiratory Effort Respiratory Pattern Blood Pressure Blood Pressure Mean Pulse Ox 100 Oxygen Delivery Method Room Air Positive well nourished, well developed and obese; Negative for cachectic, contractures or unkempt General Appearance ED: well developed and NAD; Negative for unkempt, cachectic, contractures, cyanotic, diaphoretic or pallor Nutritional Appearance: obese; Negative for cachectic HEENT Reports TM's clear and moist mucous membranes Negative for trauma or tenderness Tympanic Membrane ED: Yes TM's clear Eyes PERRL and EOMs intact bilaterally General Eye ED: Negative for pale conjunctiva or scleral icterus Neck no lymphadenopathy, supple and no JVD Chest Wall inspection of chest normal and palpation of chest normal Resp normal respiratory effort and clear to auscultation bilaterally Cardio regular rate, regular rhythm, S1 normal heart sound, S2 normal heart sound and no murmurs GI normal to inspection, nondistended, normoactive bowel sounds, non-tender and non-distended Palpation: soft Back/Spine no CVA tenderness General Back: Negative for CVA tenderness Cervical Spine: Negative for cervical spine tenderness Thoracic Spine / Upper Back: Negative for thoracic spinal tenderness or paraspinal muscle tenderness Extremity normal to inspection General Extremety ED: Yes edema; Negative for tenderness General Extremity: edema Neuro oriented x3 and CN's II-XII intact bilaterally Sensorium / Orientation: alert Sensory Exam: sensory level loss detected Motor Exam: strength 5/5 throughout Psych Appearance: Negative for unkempt Skin no rashes or lesions noted and no wounds General Skin Exam: Negative for elasticity normal, jaundice or pallor MDM MDM MDM Narrative Medical decision making narrative: Frontal diagnosis would be malnourishment, hypoalbuminemia, dependent edema, CHF Lab Data Attestation: I reviewed the patient's lab results. Lab results narrative: CBC differential are normal. Comprehensive metabolic panel is normal. BNP high-sensitivity troponin are both normal. Labs: Laboratory Results - last 24 hr 06/22/21 06/22/21 06/22/21 15:30 15:30 15:30 WBC 5.6 RBC 4.61 Hgb 14.0 Hct 41.9 MCV 90.9 MCH 30.4 MCHC 33.4 RDW Std Deviation 43.0 RDW Coeff of Zarina 13.0 Plt Count 212 MPV 10.8 Immature Gran % (Auto) 0.400 Neut % (Auto) 75.4 H Lymph % (Auto) 18.5 L Flagler % (Auto) 5.5 Eos % (Auto) 0.0 Baso % (Auto) 0.2 Absolute Neuts (auto) 4.3 Absolute Lymphs (auto) 1.04 Nucleated RBC % 0 Sodium 140 Potassium 3.9 Chloride 105 Carbon Dioxide 29.0 Anion Gap 6 BUN 21 H Creatinine 0.98 Estim Creat Clear Calc 54.03 Est GFR (MDRD) Af Amer 74 Est GFR (MDRD) Non-Af 62 BUN/Creatinine Ratio 21.3 H Glucose 141 H Calcium 9.0 Total Bilirubin 0.20 AST 21 ALT 34 Alkaline Phosphatase 77 Troponin I High Sens < 3 L B-Natriuretic Peptide 45.0 Total Protein 6.8 Albumin 3.3 Globulin 3.5 Albumin/Globulin Ratio 0.9 Radiography Chest X-Ray - ED: 1 View and Read by ED Physician (Limited inspiratory volume probably due to rib fracture. There is no evidence of congestive heart failure i.e. curly B-lines, effusion or cephalization. No obvious rib fractures noted. There is no pneumothorax noted.) Diagnostic Testing: Clinical Impression(s) from Imaging Studies Chest X-Ray 06/22/21 14:39 IMPRESSION: 1. Shallow aspiration crowding of bronchovascular markings, no focal infiltrate or consolidation. No congestive failure Electronically Signed: Chidi Linda MD at 15:50 EST Tel , Service support , EKG Initial EKG: Attestation: I personally reviewed and interpreted this EKG as follows: Interpretation: Sinus Bradycardia (Sinus bradycardia with a rate of 58. EKG is otherwise unremarkable. MN interval is 154 ms. QRS duration 88 ms. QT duration 424 ms. [place] is normal.) Discharge Plan Triage Chief Complaint: Edema ED Provider: Emmanuel Glass Dx/Rx/DC Orders Clinical Impression: Dependent lymphedema due to impaired mobility Prescriptions: No Action atorvastatin 80 MG tablet 80 mg PO QHS RF: 0 nicotine 14 MG patch 14 mg TRANSDERM. DAILY RF: 0 oxycodone-acetaminophen [Endocet] 5-325 mg tablet 1 tab PO Q6H PRN (Reason: pain) 3 Days Qty: 12 RF: 0 ibuprofen 600 mg tablet 600 mg PO Q6H PRN PRN (Reason: fever or pain) Qty: 20 RF: 0 Primary Care Provider: Nery Rose Referrals: Nery Rose PA [Primary Care Provider] - 10-14 Days if not better Disposition Disposition: Home, Self Care
[2021-06-22 17:46] VITALS: BP 137/74; PULSE 69; RESP 15; O2SAT 99
== END 2021-06-22 17:47 | disposition home or self-care (01) ==
PROVIDERS: Emergency Medicine; Emergency Provider Emergency Medicine; PCP Physician Assistant
DX: I89.0 Lymphedema, not elsewhere classified (principal); E78.00 Pure hypercholesterolemia, unspecified; E66.9 Obesity, unspecified; Z68.32 Body mass index [BMI] 32.0-32.9, adult; Z79.899 Other long term (current) drug therapy; Z87.891 Personal history of nicotine dependence
CPT/HCPCS: 71045; 80053; 83880; 84484; 85025; 93005; 94760; 99283

== ENCOUNTER 2023-03-03 18:32 | Emergency (ER) | payer BC, SELFPAY ==
[2023-03-03 18:32] VITALS: BP 157/100; PULSE 66; RESP 18; TEMP 36.4; O2SAT 100; BMI 34.1
--- NOTE | 2023-03-03 19:11 | EDS_ITS ---
HPI HPI - Fall History of Present Illness Chief Complaint: Fall Informant: patient Occured/Mechanism Occurred: Days (4 days ago) Narrative Narrative: Patient presents 4 days after a fall at home. She states Wednesday evening around dark she was walking through her living room and tripped over a pair of shoes. She fell striking her leg and chest against a coffee table. She has noted bruising to both legs, left greater than right. She does note some swelling to her left leg. She also has bruising over the lower anterior chest. She denies nausea or vomiting. She denies striking her head. She has no neck or back pain. [facility] Medical History (Updated 03/03/23 @ 20:[address] Stephanie Couch MD) CVA (cerebral vascular accident) Hyperlipidemia Home Medications atorvastatin 80 mg tablet 80 mg PO QHS cholesterol 08/25/20 [History Last Taken 08/24/20] nicotine 14 mg/24 hr daily transdermal patch 14 mg TRANSDERM. DAILY smoking 08/25/20 [History Last Taken 08/24/20] ibuprofen 600 mg tablet 600 mg PO Q6H PRN PRN fever or pain #20 tabs 06/15/21 [Rx Last Taken Unknown] oxycodone-acetaminophen 5 mg-325 mg tablet (Endocet) 1 tab PO Q6H PRN pain 3 days #12 tabs 06/15/21 [Rx Last Taken Unknown] Allergy/AdvReac Type Severity Reaction Status Date / Time No Known Allergies Allergy Verified 03/03/23 18:33 Social History household members: none Smoking Status: Current every day smoker tobacco type: cigarettes substance use type: does not use ROS ROS ED Constitutional Constitutional ED: Denies chills or fever(s) Eyes Eyes: Denies change in vision ENT ENT ED: Denies rhinorrhea or sore throat Cardiovascular Cardiovascular: Reports chest pain; Denies palpitations Respiratory/Chest Respiratory/Chest: Denies cough or dyspnea Gastrointestinal Gastrointestinal: Reports abdominal pain; Denies diarrhea, nausea or vomiting Genitourinary Genitourinary ED: Denies dysuria Musculoskeletal Musculoskeletal: Reports extremity pain; Denies back pain or neck pain Integumentary Reports other Details: Ecchymoses ; Denies Abrasions or rash Neurologic Neurologic: Denies headache(s) or weakness Psychiatric Psychiatric: Denies anxiety or depression Allergic/Immunologic Allergic/Immunologic ED: Denies lip swelling or urticaria EXAM Physical Exam Const Vital Signs: 03/03/23 18:32 Temperature 97.5 F L Temperature Source Temporal Pulse Rate 66 Respiratory Rate 18 Blood Pressure 157/100 H Blood Pressure Mean 119 Pulse Ox 100 Oxygen Delivery Method Room Air Positive well nourished and well developed General Appearance ED: well developed HEENT Reports normocephalic and head/scalp atraumatic Eyes PERRL and EOMs intact bilaterally Neck supple Chest Wall Chest Narrative: Bruising noted just inferior to the xiphoid process in the upper epigastrium. Resp normal respiratory effort and clear to auscultation bilaterally Cardio regular rate and regular rhythm GI GI Narrative: Ecchymosis noted over the upper epigastric region. Mild tenderness to this area. No tenderness in the lower abdomen Palpation: soft Back/Spine no CVA tenderness Extremity Extremity Narrative: Ecchymoses to both legs around the knees, left greater than right. Mild edema noted to the left leg. Patient able to ambulate without difficulty. Neuro oriented x3 and no sensory deficits noted Sensorium / Orientation: alert Motor Exam: strength 5/5 throughout Psych mental status grossly normal MDM MDM MDM Narrative Medical decision making narrative: 2 view chest x-ray obtained to evaluate for bony/respiratory abnormality. Radiography Diagnostic Testing: Clinical Impression(s) from Imaging Studies Chest X-Ray 03/03/23 19:25 IMPRESSION: No radiographic evidence of acute cardiopulmonary disease. Electronically Signed: Antonino Dunlap MD at 19:45 EDT Reading Location ID and State: [facility] / [place] Tel , Service support , Treatment and Re-Evaluation Narrative: 2 view chest x-ray per my interpretation reveals no acute bony or pulmonary abnormality. Radiology interpretation is reviewed and agrees. Test results discussed with the patient. She will continue Aleve and Tylenol at home. Return instructions were provided. Discharge Plan Triage Chief Complaint: Fall ED Provider: Stephanie Couch Dx/Rx/DC Orders Clinical Impression: Multiple ecchymoses of thigh, Chest wall contusion, Fall Instructions: Bruises (Contusions), ED Contusion, Lower Extremity, ED Chest Wall Contusion Prescriptions: No Action atorvastatin 80 MG tablet 80 mg PO QHS nicotine 14 MG patch 14 mg TRANSDERM. DAILY oxycodone-acetaminophen [Endocet] 5-325 mg tablet 1 tab PO Q6H PRN (Reason: pain) 3 Days Qty: 12 0RF ibuprofen 600 mg tablet 600 mg PO Q6H PRN PRN (Reason: fever or pain) Qty: 20 0RF Primary Care Provider: Nery Rose Referrals: Nery Rose PA [Primary Care Provider] - 1-2 Weeks Disposition Disposition: Home, Self Care
--- NOTE | 2023-03-03 19:25 | RAD_ITS ---
INDICATION: fall EXAMINATION/TECHNIQUE: X-RAY - XR Chest 2 Views COMPARISON: CR Chest, Jun 22 2021 FINDINGS: LINES/DEVICES: None. LUNGS: No consolidation, edema or effusion. No pneumothorax. MEDIASTINUM AND CARDIOVASCULAR STRUCTURES: Cardiac silhouette not enlarged. Central airways and mediastinal contour are unremarkable. BONES AND SOFT TISSUES: Unremarkable. RAD/Chest PA and Lateral IMPRESSION: No radiographic evidence of acute cardiopulmonary disease. Electronically Signed: Antonino Dunlap MD at 19:45 EDT ,
[2023-03-03 20:06] VITALS: PULSE 66; RESP 18; O2SAT 100
== END 2023-03-03 20:16 | disposition home or self-care (01) ==
PROVIDERS: Emergency Provider Emergency Medicine; PCP Physician Assistant; Visit Provider Emergency Medicine
DX: S20.214A Contusion of middle front wall of thorax, initial encounter (principal); S70.12XA Contusion of left thigh, initial encounter; S70.11XA Contusion of right thigh, initial encounter; W01.190A Fall on same level from slipping, tripping and stumbling with subsequent striking against furniture, initial encounter; Y93.01 Activity, walking, marching and hiking; Y99.8 Other external cause status; Y92.008 Other place in unspecified non-institutional (private) residence as the place of occurrence of the external cause; F17.210 Nicotine dependence, cigarettes, uncomplicated; Z86.73 Personal history of transient ischemic attack (TIA), and cerebral infarction without residual deficits
CPT/HCPCS: 71046; 99282

== ENCOUNTER 2024-03-22 17:44 | Emergency (ER) | payer SELFPAY ==
[2024-03-22 17:44] VITALS: BP 159/105; PULSE 94; RESP 17; TEMP 36.6; O2SAT 96; BMI 34.7
--- NOTE | 2024-03-22 18:34 | ED.VIS.LOWEX ---
HPI History of Present Illness Chief Complaint: Lower Extremity Injury Informant: patient Narrative Narrative: 59-year-old female presenting to the emergency room reporting concerns for DVT. Patient states she called her primary care doctor's office today because she was experiencing pain and some swelling in the suprapatellar region of her knee. It is worse when she walks. She states that she has not seen any redness or rashes. No known trauma. She denies any known malignancy exogenous hormone ingestion she is a smoker no prior DVT or PE. 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 [facility] Medical History Hyperlipidemia CVA (cerebral vascular accident) Home Medications ?Medication ?Instructions ?Recorded ?Last Taken ?Type atorvastatin 80 mg tablet 80 mg PO QHS cholesterol 08/25/20 08/24/20 History nicotine 14 mg/24 hr daily 14 mg TRANSDERM. DAILY smoking 08/25/20 08/24/20 History transdermal patch ibuprofen 600 mg tablet 600 mg PO Q6H PRN PRN fever or 06/15/21 Unknown Rx pain #20 tabs oxycodone-acetaminophen 5 mg-325 1 tab PO Q6H PRN pain 3 days #12 06/15/21 Unknown Rx mg tablet (Endocet) tabs Allergy/AdvReac Type Severity Reaction Status Date / Time No Known Allergies Allergy Verified 03/22/24 17:44 Social History household members: none Smoking Status: Current every day smoker tobacco type: cigarettes substance use type: does not use ROS ROS ED Constitutional Constitutional ED: Denies chills or weight loss Eyes Eyes: Denies change in vision or diplopia ENT ENT ED: Denies ear pain, rhinorrhea or sore throat Cardiovascular Cardiovascular: Denies chest pain, orthopnea, palpitations or racing heartbeat Respiratory/Chest Respiratory/Chest: Denies cough, dyspnea or orthopnea Gastrointestinal Gastrointestinal: Denies abdominal pain, diarrhea, nausea or vomiting Genitourinary Genitourinary ED: Denies dysuria, hematuria or urinary frequency Musculoskeletal Musculoskeletal: Reports other Details: See history of present illness ; Denies arthralgias or myalgias Integumentary Denies abscess or rash Neurologic Neurologic: Denies headache(s) or weakness Psychiatric Psychiatric: Denies anxiety, depression, suicidal ideation or suicidal thoughts Endocrine Endocrinology: Denies polydipsia, polyphagia or polyuria Allergic/Immunologic Allergic/Immunologic ED: Denies mouth swelling, tongue swelling or urticaria EXAM Physical Exam Const Vital Signs: 03/22/24 17:44 Temperature 98 F Temperature Source Temporal Pulse Rate 94 Respiratory Rate 17 Blood Pressure 159/105 H Blood Pressure Mean 123 Pulse Ox 96 Oxygen Delivery Method Room Air Positive well nourished and well developed General Appearance ED: well developed HEENT Reports normocephalic, head/scalp atraumatic and moist mucous membranes Eyes PERRL and EOMs intact bilaterally Neck no lymphadenopathy, supple and no JVD Resp normal respiratory effort and clear to auscultation bilaterally Cardio regular rate, regular rhythm and no murmurs GI normal to inspection, nondistended, normoactive bowel sounds and non-tender Palpation: soft Back/Spine no CVA tenderness and normal ROM Extremity Extremity Narrative: There is some mild nonthrombosed varicose veins in the anterior part of the leg. Calf is nontender. There is some very mild swelling over the ankle joints bilaterally. There is no appreciable rash. There is a fullness in the popliteal fossa. Thigh is nontender. There is some mild swelling in the prepatellar bursal region. General Extremety ED: Negative for edema General Extremity: Negative for edema Neuro oriented x3 and CN's II-XII intact bilaterally Sensorium / Orientation: alert Motor Exam: strength 5/5 throughout Psych mental status grossly normal Mood & Affect: Negative for depressed or tearful Skin no rashes or lesions noted and no wounds MDM MDM MDM Narrative Medical decision making narrative: Differential diagnosis includes but not limited to prepatellar bursitis DVT superficial thrombophlebitis Ocampo's cyst muscular strain ligamentous injury tendon injury Duplex ultrasound was obtained is negative for DVT. There is a 5 cm anechoic area in the popliteal fossa this could easily be a Ocampo's cyst. Patient will be discharged home would recommend conservative treatment follow-up with orthopedics if needed History & Record Review Discussion w/independent historian: Patient Discharge Plan Triage Chief Complaint: Lower Extremity Injury ED Provider: Magan Graves Dx/Rx/DC Orders Prescriptions: No Action atorvastatin 80 MG tablet 80 mg PO QHS nicotine 14 MG patch 14 mg TRANSDERM. DAILY oxycodone-acetaminophen [Endocet] 5-325 mg tablet 1 tab PO Q6H PRN (Reason: pain) 3 Days Qty: 12 0RF ibuprofen 600 mg tablet 600 mg PO Q6H PRN PRN (Reason: fever or pain) Qty: 20 0RF Primary Care Provider: Nery Rose Referrals: Nery Rose PA [Primary Care Provider] - Print Language: Nepali
--- NOTE | 2024-03-22 18:57 | US_ITS ---
STUDY: VENOUS DOPPLER ULTRASOUND - LEFT LOWER EXTREMITY REASON FOR EXAM: Female, 59 years old. LT CALF SWELLING TECHNIQUE: Ultrasound evaluation of the deep vein system to include forte-scale imaging and compression was performed. Forte-scale imaging and Doppler sonographic evaluation, including duplex spectral analysis and qualitative color flow sonography, was performed. COMPARISON: None. FINDINGS: Common Femoral Vein: Normal compression, spontaneity and augmentation. Normal color Doppler. Common Femoral Vein/Greater Saphenous Junction: Normal compression, spontaneity and augmentation. Normal color Doppler. Deep Femoral Vein: Normal compression, spontaneity and augmentation. Normal color Doppler. Femoral Proximal: Normal compression, spontaneity and augmentation. Normal color Doppler. Femoral Middle: Normal compression, spontaneity and augmentation. Normal color Doppler. Femoral Distal: Normal compression, spontaneity and augmentation. Normal color Doppler. Popliteal Vein: Normal compression, spontaneity and augmentation. Normal color Doppler. Posterior Tibial Vein: Normal compression, spontaneity and augmentation. Normal color Doppler. Peroneal Vein: Normal compression, spontaneity and augmentation. Normal color Doppler. There is a small Ocampo''s cyst measuring 5.1 x 2 x 2.1 cm US/Venous Duplex Imag/Limited/Uni IMPRESSION: No evidence for deep venous thrombosis. Small Ocampo''s cyst in the left popliteal fossa Electronically Signed: Raymond Blackman MD at 19:22 EDT ,
[2024-03-22 19:31] VITALS: BP 137/90; PULSE 72; RESP 16; TEMP 36.5; O2SAT 97
== END 2024-03-22 19:33 | disposition home or self-care (01) ==
PROVIDERS: Emergency Provider Emergency Medicine; PCP Physician Assistant; Visit Provider Emergency Medicine
DX: M79.89 Other specified soft tissue disorders (principal); F17.210 Nicotine dependence, cigarettes, uncomplicated; Z86.73 Personal history of transient ischemic attack (TIA), and cerebral infarction without residual deficits
CPT/HCPCS: 93971; 99282